=== PATIENT | male | born 2000 | race Caucasian/White ===

== ENCOUNTER 2025-04-01 16:30 | Emergency (ER) | payer SELFPAY ==
[2025-04-01 16:33] VITALS: BP 148/86; PULSE 112; RESP 16; TEMP 37.2; O2SAT 98
--- NOTE | 2025-04-01 17:46 | ED_ITS ---
HPI - Skin/Abscess/Foreign Bdy General Chief complaint: Skin/Abscess/Foreign Body Stated complaint: swelling under chin Time Seen by Provider: 04/01/25 17:46 Source: patient Mode of arrival: ambulatory Limitations: no limitations History of Present Illness HPI narrative: Timothy is a 25-year-old male patient presenting to the ER today with complaints of swelling under his chin for the past 2 weeks. Reports that it is mildly tender. Denies any known fevers, chills, or body aches. No known injury. Denies any in neck pain, dental pain, or sore throat. Related Data Allergies Allergy/AdvReac Type Severity Reaction Status Date / Time No Known Allergies Allergy Verified 04/01/25 16:36 Review of Systems Review of Systems: Pertinent positives per HPI. Patient denies any fever, chills, rash, headache, visual changes, dizziness, cough, runny nose, sore throat, shortness of breath, chest pain, palpitations, nausea, vomiting, diarrhea, constipation, abdominal pain, or any urinary issues. PMFSH Comments At the time of my signature, I reviewed and agree with the nursing past medical, surgical, social, and family history. There is no relevant family history pertinent to the patient complaint. Exam Narrative: General: Well-developed, well nourished, in no apparent distress Head: Normocephalic, atraumatic Eyes: Pupils equally round and reactive to light bilaterally, EOM intact, sclera and conjunctive clear, no discharge, lids normal Ears: TMs intact and clear, ear canals clear, no drainage, grossly hearing normal. Nose: Nares patent, no discharge, no inflammation, no sinus tenderness. Mouth: Oropharynx without lesions or masses, good dentition, MMM. Neck: Supple, trachea midline, no enlargement of anterior or posterior cervical nodes, enlargement of the submandibular lymph nodes, mildly tenderness to palpation, area measuring approximately 2 x 2 cm, no redness or erythema, no thyroid masses or goiter palpable. Cardio: Regular rate and rhythm, s1 and s2 normal, no murmur appreciated. Resp: Clear to auscultation bilaterally anteriorly and posteriorly, no rhonchi, rales, wheezing or rubs Course Course Emergency Course: Portions of this record may have been created with voice recognition software. Vital Signs Vital signs: Vital Signs Temperature 37.2 C 04/01/25 16:33 Pulse Rate 112 H 04/01/25 16:33 Respiratory Rate 16 04/01/25 16:33 Blood Pressure 148/86 H 04/01/25 16:33 Pulse Oximetry 98 04/01/25 16:33 Oxygen Delivery Room Air 04/01/25 16:33 Temperature 37.2 C 04/01/25 16:33 Pulse Rate 96 04/01/25 18:25 Respiratory Rate 16 04/01/25 18:25 Blood Pressure 114/71 04/01/25 18:25 Pulse Oximetry 100 04/01/25 18:25 Oxygen Delivery Room Air 04/01/25 16:33 Vital signs reviewed MDM - Skin/Abscess/Foreign Bdy MDM Narrative Medical decision making narrative: At the time of visit patient is resting comfortably on the exam table. Patient appears to be nontoxic. Complaints of swelling under his chin for the past 2 weeks. Reports that it is mildly tender. Denies any known fevers, chills, or body aches. No known injury. Denies any in neck pain, dental pain, or sore throat. On exam patient has submandibular lymphadenopathy. No dental pain and oral pharynx is normal. Bilateral ear exam normal. Plan: I suspect the patient has submandibular swelling/lymphadenopathy. Prescription for Augmentin was sent to the pharmacy. Supportive measures were discussed with the patient and they voiced understanding discharge instructions and agrees to treatment plan. Return precautions reviewed Differential Diagnosis Differential diagnosis: Likely abscess of skin or subcutaneous tissue, celluliti s and other (Lymphadenopathy, cysts, lipoma, saliadenitis) Discharge Plan Discharge Clinical Impression: Submandibular lymphadenopathy Patient Disposition: Home Condition: Stable Instructions: Antibiotic Form, Lymphadenopathy (ED) Additional Instructions: Increase fluids and stay well hydrated Take Tylenol/Motrin as needed for pain Take Augmentin as prescribed Follow-up with your PCP in 3-5 days if symptoms persist-may need further evaluation such as a biopsy if symptoms do not improve Patient Language: Croatian Prescriptions: New amoxicillin-pot clavulanate 875-125 mg tablet 1 tablet PO Q12H 10 Days Qty: 20 0RF Follow-up/Referrals: PHYSICIAN,RAILROAD DESIGN CONSULTANT [Primary Care Provider, Internal Medicine] Time of Disposition: 17:53 Quality NIHSS Nursing Documentation ED NIHSS nursing documentation: reviewed/agree
[2025-04-01 18:25] VITALS: BP 114/71; PULSE 96; RESP 16; O2SAT 100
== END 2025-04-01 18:28 | disposition home or self-care (01) ==
LOC: ANHED 17:56
PROVIDERS: Emergency Provider Nurse Practitioner Family
DX: R59.0 Localized enlarged lymph nodes (principal)
CPT/HCPCS: 99283